=== PATIENT | male | born 1975 | race African-American/Black ===

== ENCOUNTER 2017-04-16 09:01 | Emergency (ER) | payer SELFPAY, OTHER ==
[2017-04-16] MEDS ORDERED: Lorazepam 2 MG/ML VIAL ONE (09:24)
[2017-04-16] MEDS ORDERED: Sodium Chloride 0.9% 100 ML ONE (10:16)
== END 2017-04-16 12:05 | disposition home or self-care (01) ==
LOC: NAV ERS 09:01
DX: G40.301 Generalized idiopathic epilepsy and epileptic syndromes, not intractable, with status epilepticus (principal); Z91.14 Patient's other noncompliance with medication regimen
CPT/HCPCS: 96365; 96375; J1165; J2060

== ENCOUNTER 2017-06-01 11:48 | Emergency (ER) | payer OTHER, SELFPAY | END 2017-06-01 12:39 | disposition home or self-care (01) | LOC: NAV ERS 11:48 | DX: L02.511 Cutaneous abscess of right hand (principal); L03.011 Cellulitis of right finger | CPT/HCPCS: 99283 ==

== ENCOUNTER 2017-06-29 12:04 | Emergency (ER) | payer SELFPAY ==
[2017-06-29] MEDS ORDERED: levETIRAcetam 500 MG TAB ONE (12:39)
[2017-06-29] MEDS ORDERED: Sodium Chloride 0.9% 1,000 ML ONE (12:39)
[2017-06-29 13:06] LABS: #Basophils 0.1 thou/uL (0.0-0.2); #Eosinphils 0.4 thou/uL (0.0-0.7); #Lymphocytes 1.4 thou/uL (1.20-3.40); #Monocytes 0.3 thou/uL (0.11-0.59); %Basophils 1.6 % (0.0-1.0); %Lymphocytes 32.8 % (21.0-51.0); %Monocytes 7.7 % (0.0-10.0); %Neutrophils 47.9 % (42.0-75.0); Hemoglobin 12.5 g/dL (14.0-18.0); Mean Corpuscular HGB CONC 33.2 g/dL (32.0-36.0); Mean Corpuscular Hemoglobin 29.9 pg (27.0-31.0); Mean Corpuscular Volume 90.1 fl (80.0-94.0); Platelet Count 245 thou/uL (130-400); RBC Distribution Width 12.9 % (11.5-14.5); Red Blood Cell (RBC) Count 4.18 mill/uL (4.70-6.10); White Blood Cell (WBC) Count 4.3 thou/uL (4.8-10.8)
[2017-06-29] MEDS ORDERED: Acetaminophen 500 MG TAB ONE (13:15)
[2017-06-29 13:17] LABS: ALT (SGPT) 20 U/L (8-55); AST (SGOT) 15 U/L (5-34); Albumin 4.2 g/dL (3.5-5.0); Alkaline Phosphatase 54 U/L (40-150); Anion Gap 14 mmol/L (10-20); BUN (Urea Nitrogen) 16 mg/dL (8.9-20.6); Bilirubin, Total 0.4 mg/dL (0.2-1.2); Calc. Creatinine Clearance 0 mL/min (70-130); Calcium 9.5 mg/dL (7.8-10.44); Carbon Dioxide 22 mmol/L (22-29); Chloride 106 mmol/L (98-107); Estimated GFR-MDRD 86; Globulin 3.7 g/dL (2.4-3.5); Glucose 95 mg/dL (70-105); Potassium 4.1 mmol/L (3.5-5.1); Protein, Total 7.9 g/dL (6.0-8.3); Sodium 138 mmol/L (136-145)
[2017-06-29 14:08] LABS: Dilantin Less than 1.8 ug/mL (10.0-20.0)
[2017-06-29 14:09] LABS: Amphetamine Not Detected (NotDetected); Barbiturates Screen Not Detected (NotDetected); Benzodiazepine Screen Not Detected (NotDetected); Cocaine Metabolite Screen Not Detected (NotDetected); Medtox Control Line Valid? VALID (VALID); Methadone Not Detected (NotDetected); Methamphetamine Not Detected (NotDetected); Opiate Screen Not Detected (NotDetected); Oxycodone Screen Not Detected (NotDetected); Phencyclidine (PCP) Not Detected (NotDetected); THC/Cannabinoid Screen Not Detected (NotDetected); Tricyclic Screen Not Detected (NotDetected)
== END 2017-06-29 14:29 | disposition home or self-care (01) ==
LOC: NAV ERS 12:04
DX: G40.909 Epilepsy, unspecified, not intractable, without status epilepticus (principal); I10 Essential (primary) hypertension; Z79.899 Other long term (current) drug therapy
CPT/HCPCS: 36415; 80053; 80185; 80306; 85025; 96360; J7050

== ENCOUNTER 2017-08-25 14:01 | Emergency (ER) | payer SELFPAY ==
[2017-08-25] MEDS ORDERED: diphenhydrAMINE HCl 50 MG/ML 1 ML VIAL ONE (14:45)
[2017-08-25] MEDS ORDERED: Sodium Chloride 0.9% 1,000 ML ONE (14:45)
[2017-08-25] MEDS ORDERED: Metoclopramide HCl 10 MG/2 ML VIAL ONE (14:46)
== END 2017-08-25 15:46 | disposition home or self-care (01) ==
LOC: NAV ERS 14:01
DX: G43.909 Migraine, unspecified, not intractable, without status migrainosus (principal); I10 Essential (primary) hypertension; G40.909 Epilepsy, unspecified, not intractable, without status epilepticus; Z79.899 Other long term (current) drug therapy
CPT/HCPCS: 93005; 96361; 96374; 96375; J1200; J2765; J7050

== ENCOUNTER 2018-01-02 23:37 | Emergency (ER) | payer OTHER, SELFPAY ==
[2018-01-03] MEDS ORDERED: Metoclopramide HCl 10 MG/2 ML VIAL ONE (00:04)
[2018-01-03] MEDS ORDERED: Sodium Chloride 0.9% 1,000 ML ONE (00:04)
[2018-01-03] MEDS ORDERED: Ketorolac Tromethamine 30 MG/ML VIAL ONE (00:05)
== END 2018-01-03 01:10 | disposition home or self-care (01) ==
LOC: NAV ERS 23:37
DX: G43.909 Migraine, unspecified, not intractable, without status migrainosus (principal); I10 Essential (primary) hypertension; Z79.899 Other long term (current) drug therapy
CPT/HCPCS: 96365; 96375; J1885; J2765; J7050

== ENCOUNTER 2018-01-13 10:59 | Emergency (ER) | payer SELFPAY, OTHER ==
--- NOTE | 2018-01-13 11:59 | RAD ---
RIGHT RIBS THREE VIEWS CHEST ONE VIEW: History: Right chest wall pain. FINDINGS: No displaced rib fracture or pneumothorax are apparent. Cardiac silhouette and pulmonary vasculature are unremarkable. Mediastinum is midline. No lobar consolidation. Calcified granulomata are consisten t with healed granulomatous disease. IMPRESSION: 1. No acute abnormalities are demonstrated. POS: [facility]
[2018-01-13] MEDS ORDERED: cloNIDine 0.2 MG TAB ONE (12:19)
== END 2018-01-13 13:20 | disposition home or self-care (01) ==
LOC: NAV ERS 10:59
DX: S29.011A Strain of muscle and tendon of front wall of thorax, initial encounter (principal); I10 Essential (primary) hypertension; G40.909 Epilepsy, unspecified, not intractable, without status epilepticus; Z79.899 Other long term (current) drug therapy; X58.XXXA Exposure to other specified factors, initial encounter
CPT/HCPCS: 93005

== ENCOUNTER 2018-01-28 14:42 | Emergency (ER) | payer OTHER | END 2018-01-28 17:58 | disposition home or self-care (01) | LOC: NAV ERS 14:42 | DX: R56.9 Unspecified convulsions (principal); Z79.899 Other long term (current) drug therapy | CPT/HCPCS: 99283 ==

== ENCOUNTER 2018-03-13 16:26 | Emergency (ER) | payer OTHER, SELFPAY ==
[2018-03-13 17:18] LABS: #Basophils 0.1 thou/uL (0.0-0.2); #Eosinphils 0.2 thou/uL (0.0-0.7); #Lymphocytes 1.7 thou/uL (1.20-3.40); #Monocytes 0.3 thou/uL (0.11-0.59); #Neutrophils 1.9 thou/uL (1.40-6.50); %Basophils 1.3 % (0.0-1.0); %Eosinophils 3.7 % (0.0-10.0); %Lymphocytes 41.8 % (21.0-51.0); %Monocytes 7.3 % (0.0-10.0); Mean Corpuscular HGB CONC 32.5 g/dL (32.0-36.0); Mean Corpuscular Hemoglobin 28.7 pg (27.0-31.0); Mean Corpuscular Volume 88.4 fl (80.0-94.0); Mean Platelet Volume 8.4 fL (7.4-10.4); Platelet Count 262 thou/uL (130-400); RBC Distribution Width 12.5 % (11.5-14.5); Red Blood Cell (RBC) Count 4.53 mill/uL (4.70-6.10); White Blood Cell (WBC) Count 4.1 thou/uL (4.8-10.8)
--- NOTE | 2018-03-13 17:20 | CT ---
BRAIN CT WITHOUT IV CONTRAST: HISTORY: A 42-year-old male with a history of difficulty speaking. History of brain tumor resected in 1994. Dysphagia today, which is new. FINDINGS: There are postoperative left frontal craniotomy changes with some left basal ganglia calcific changes and some encephalomalacia and associated volume loss, which is overall stable. There has been progr essive bilateral chronic white matter ischemic changes, as well as development of multiple small lacu estella infarcts bilaterally, including some white matter ischemic changes involving the right caudate nu cleus region. No evidence for acute hemorrhage. The sinuses and mastoids are clear. IMPRESSION: 1. No evidence for acute mass or hemorrhage. 2. Postoperative changes in the left frontal region. 3. New widespread chronic white matter ischemic changes bilaterally and some lacunar infarct changes since 05/11/2014. 4. Given new symptoms, consideration for a follow-up MRI study should be considered, particularly if there is concern for an acute infarct. Findings were discussed with Dr. Terrazas at 5:04 p.m. CODE CR POS: [facility]
[2018-03-13 17:22] LABS: Bilirubin Negative (Negative); Blood, Urine Negative (Negative); Clarity Clear (Clear); Glucose, Urine (Dipstick) Negative (Negative); Leukocyte Negative (Negative); Nitrite Negative (Negative); Protein, Urine (Dipstick) Negative (Neg-Trace); Urobilinogen 0.2 mg/dL (0.2-1.0)
[2018-03-13 17:23] LABS: PTT 28.2 SEC (22.9-36.1); Prothrombin Time 12.9 SEC (12.0-14.7)
[2018-03-13 17:24] LABS: Alcohol Less than 10 mg/dL (Less than 10)
[2018-03-13 17:30] LABS: ALT (SGPT) 63 U/L (8-55); AST (SGOT) 24 U/L (5-34); Albumin 4.1 g/dL (3.5-5.0); Alkaline Phosphatase 67 U/L (40-150); Anion Gap 14 mmol/L (10-20); BUN (Urea Nitrogen) 19 mg/dL (8.9-20.6); Bilirubin, Total 0.2 mg/dL (0.2-1.2); Calc. Creatinine Clearance 0 mL/min (70-130); Calcium 9.4 mg/dL (7.8-10.44); Carbon Dioxide 24 mmol/L (22-29); Chloride 108 mmol/L (98-107); Estimated GFR-MDRD 74; Globulin 3.8 g/dL (2.4-3.5); Glucose 102 mg/dL (70-105); Lipase 19 U/L (8-78); Potassium 4.3 mmol/L (3.5-5.1); Protein, Total 7.9 g/dL (6.0-8.3); Sodium 142 mmol/L (136-145)
[2018-03-13 17:33] LABS: CKMB 0.4 ng/mL (0-6.6); Troponin I Less than 0.010 ng/mL (< 0.028)
[2018-03-13 17:37] LABS: Amphetamine Not Detected (NotDetected); Barbiturates Screen Detected (NotDetected); Benzodiazepine Screen Not Detected (NotDetected); Cocaine Metabolite Screen Not Detected (NotDetected); Medtox Control Line Valid? VALID (VALID); Methadone Not Detected (NotDetected); Methamphetamine Not Detected (NotDetected); Opiate Screen Not Detected (NotDetected); Oxycodone Screen Not Detected (NotDetected); Phencyclidine (PCP) Not Detected (NotDetected); THC/Cannabinoid Screen Not Detected (NotDetected); Tricyclic Screen Not Detected (NotDetected)
[2018-03-13 19:01] LABS: Dilantin 5.5 ug/mL (10.0-20.0)
--- NOTE | 2018-03-13 19:53 | RAD ---
SEMIUPRIGHT PORTABLE CHEST ONE VIEW: HISTORY: A 42-year-old male with a history of difficulty speaking. History of prior brain tumor. Became dysp hasic. FINDINGS: Heart size is within normal limits. No confluent pneumonia, overt edema, or pleural effusion. IMPRESSION: No acute intrathoracic disease. POS: [facility]
== END 2018-03-13 19:35 | disposition home or self-care (01) ==
LOC: NAV ERS 16:26
DX: G40.409 Other generalized epilepsy and epileptic syndromes, not intractable, without status epilepticus (principal); I10 Essential (primary) hypertension; Z79.899 Other long term (current) drug therapy
CPT/HCPCS: 70450; 71045; 80053; 80185; 80306; 80307; 81003; 82553; 83690; 84484; 85025; 85610; 85730; 93005

== ENCOUNTER 2019-01-09 07:55 | Emergency (ER) | payer OTHER, MEDICAID | END 2019-01-09 08:50 | disposition home or self-care (01) | LOC: NAV ERS 07:55 | DX: J02.9 Acute pharyngitis, unspecified (principal); G40.909 Epilepsy, unspecified, not intractable, without status epilepticus; E78.5 Hyperlipidemia, unspecified; Z79.891 Long term (current) use of opiate analgesic; Z79.899 Other long term (current) drug therapy; Z79.82 Long term (current) use of aspirin | CPT/HCPCS: 99283 ==